=== PATIENT | female | born 1970 | race American Indian/Alaskan Native ===

== ENCOUNTER 2020-02-04 19:43 | Emergency (ER) | payer OTHER ==
[2020-02-04 19:52] VITALS: BP 131/77
== END 2020-02-04 20:31 | disposition left against medical advice (07) ==
LOC: M ED 19:43
DX: F10.220 Alcohol dependence with intoxication, uncomplicated (principal)

== ENCOUNTER → 2021-07-06 | Outpatient (REF) | payer OTHER ==
[2021-07-06 16:57] LABS: BASO # 0.1 10^3/uL (0.0-0.2); BASO % 0.7 % (0.0-1.0); EOS # 0.3 10^3/uL (0.0-0.5); EOS % 2.5 % (0.0-3.0); HEMATOCRIT 43.6 % (36.0-47.0); HEMOGLOBIN 14.4 g/dl (12.0-15.5); LYMPH # 2.4 10^3/uL (1.5-5.0); LYMPH % 21.5 % (24.0-44.0); MEAN CORPUSCULAR HEMOGLOBIN 30.6 pg (27.0-33.0); MEAN CORPUSCULAR VOLUME 92.6 fl (80.0-96.0); MONO # 0.8 10^3/uL (0.0-0.8); MONO % 6.7 % (2.0-8.0); NEUTROPHILS # 7.7 10^3/uL (1.5-8.5); NEUTROPHILS % 68.3 % (36.0-66.0); PLATELET COUNT, AUTOMATED 333 10^3/uL (150-450); RED BLOOD COUNT 4.71 10^6/uL (4.00-5.40); WHITE BLOOD COUNT 11.3 10^3/uL (4.0-10.0)
[2021-07-06 17:07] LABS: ALBUMIN 3.7 GM/DL (3.2-5.2); ALT/SGPT 23 U/L (12-78); BILIRUBIN,TOTAL 0.2 MG/DL (0.2-1.0); BLOOD UREA NITROGEN 16 MG/DL (7-18); CALCIUM LEVEL 9.6 MG/DL (8.5-10.1); CARBON DIOXIDE LEVEL 29 MEQ/L (21-32); CHLORIDE LEVEL 104 MEQ/L (98-107); CHOLESTEROL LEVEL 183 MG/DL (<200); CHOLESTEROL RISK RATIO 3.388 (<5); CREATININE FOR GFR 0.84 MG/DL (0.55-1.30); GLOMERULAR FILTRATION RATE > 60.0 (>51); GLUCOSE, FASTING 94 MG/DL (70-100); HDL CHOLESTEROL 54 MG/DL (>40); LDL CHOLESTEROL 109 MG/DL (<100); NON-HDL-C 129 MG/DL; POTASSIUM SERUM 3.8 MEQ/L (3.5-5.1); SODIUM LEVEL 137 MEQ/L (136-145); TRIGLYCERIDES LEVEL 100 MG/DL (<150)
== END ==
LOC: M SFHCADAM 14:36
PROVIDERS: ATTEND Physician Assistant Medical
DX: I10 Essential (primary) hypertension (principal); F41.1 Generalized anxiety disorder; F10.20 Alcohol dependence, uncomplicated; Z12.39 Encounter for other screening for malignant neoplasm of breast

== ENCOUNTER → 2022-01-01 | Outpatient (REF) | payer OTHER | LOC: M SFHCADAM 12:24 | PROVIDERS: ATTEND Family Medicine | DX: R05.9 Cough, unspecified (principal) ==

== ENCOUNTER 2022-06-14 02:12 | Emergency (ER) | payer OTHER ==
[~2022-06-14] VITALS: Ht 170.2 cm; Wt 98.5 kg
[2022-06-14 02:14] VITALS: BP 132/85
== END 2022-06-14 02:55 | disposition left against medical advice (07) ==
LOC: M ED 02:12
DX: Z53.21 Procedure and treatment not carried out due to patient leaving prior to being seen by health care provider (principal)

== ENCOUNTER → 2022-07-18 | Outpatient (REF) | payer OTHER ==
[~2022-07-18] MED LIST: ASPI-596 PO; HYDR-3363 PO; LEXA1TAB PO; LISI10TA24 PO; TRAZ150T90 PO; [UNRECOGNIZED DRUG - CODE] OU
== END ==
LOC: M SFHCPLAZ 17:21
PROVIDERS: ATTEND Physician Assistant
DX: R05.1 Acute cough (principal)

== ENCOUNTER → 2022-11-01 | Outpatient (CLI) | payer OTHER | LOC: M LABSMTC 10:33 | PROVIDERS: ATTEND Family Medicine | DX: Z20.822 Contact with and (suspected) exposure to COVID-19 (principal) ==

== ENCOUNTER 2022-11-24 21:33 | Inpatient (IN) | payer OTHER ==
[~2022-11-24] VITALS: Ht 170.2 cm; Wt 103.2 kg
[2022-11-24] MEDS ORDERED: DERMABOND TOPICAL SKIN ADHESIVE TOP ONE (21:50)
[2022-11-24] MEDS ORDERED: BOOSTRIX/ADACEL VACCINE (DIPHTH/PERTUSS/ACELL/TETANUS) 0.5ML SYR IM.IMMUN ONE (21:55)
[2022-11-24 22:39] LABS: HEMATOCRIT 39.8 % (36.0-47.0); HEMOGLOBIN 13.3 g/dl (12.0-15.5); MEAN CORPUSCULAR HEMOGLOBIN 31.9 pg (27.0-33.0); MEAN CORPUSCULAR HGB CONC 33.4 g/dl (32.0-36.5); MEAN CORPUSCULAR VOLUME 95.4 fl (80.0-96.0); PLATELET COUNT, AUTOMATED 256 10^3/uL (150-450); RED BLOOD COUNT 4.17 10^6/uL (4.00-5.40); WHITE BLOOD COUNT 6.1 10^3/uL (4.0-10.0)
[2022-11-24 22:57] LABS: AMPHETAMINES LEVEL URINE NEGATIVE (NEGATIVE); BARBITURATES URINE NEGATIVE (NEGATIVE); BENZODIAZEPINES URINE NEGATIVE (NEGATIVE); CANNABINOIDS URINE NEGATIVE (NEGATIVE); COCAINE METABOLITE URINE NEGATIVE (NEGATIVE); METHADONE URINE NEGATIVE (NEGATIVE); OPIATES URINE NEGATIVE (NEGATIVE); PHENCYCLIDINE URINE NEGATIVE (NEGATIVE)
[2022-11-24 23:00] LABS: ACETAMINOPHEN LEVEL < 2.0 UG/ML (10.0-20.0); SALICYLATE LEVEL < 3.0 MG/DL (<30)
[2022-11-24 23:11] LABS: ALBUMIN 3.5 G/DL (3.2-5.2); ALKALINE PHOSPHATASE 74 U/L (46-116); ALT/SGPT 49 U/L (7.0-40); AST/SGOT 87 U/L (<34); BILIRUBIN,DIRECT 0.1 MG/DL (<0.4); BILIRUBIN,TOTAL 0.3 MG/DL (0.3-1.2); BLOOD UREA NITROGEN 8 MG/DL (9-23); CALCIUM LEVEL 8.4 MG/DL (8.5-10.1); CARBON DIOXIDE LEVEL 26 MMOL/L (20-31); CHLORIDE LEVEL 109 MMOL/L (98-107); CREATININE FOR GFR 0.84 MG/DL (0.55-1.30); ETHYL ALCOHOL (ETHANOL) 0.331 % (0.000-0.010); GLOMERULAR FILTRATION RATE > 60.0 (>51); GLUCOSE, FASTING 101 MG/DL (60-100); POTASSIUM SERUM 3.5 MMOL/L (3.5-5.1); SODIUM LEVEL 146 MMOL/L (136-145)
[2022-11-24 23:41] LABS: HCG, SERUM QUALITATIVE NEGATIVE (NEGATIVE)
[2022-11-25 00:18] LABS: TOTAL PROTEIN 6.5 G/DL (5.7-8.2)
[2022-11-25] MEDS: traZODone 50 MG TAB PO SCH ×3 (03:05→21:49)
[2022-11-25] MEDS: ERYTHROMYCIN OPHTH OINT OU SCH ×5 (03:31→22:42)
[2022-11-25] MEDS ORDERED: hydroCHLOROthiazide 12.5 MG CAPSULE PO ONE (06:50)
[2022-11-25] MEDS ORDERED: ONDANSETRON 4MG ORAL DISINTEGRATING TAB PO PRN (07:40)
[2022-11-25] MEDS: FOLIC ACID 1MG TAB PO SCH (08:05)
[2022-11-25] MEDS: LORazepam 2 MG TAB PO PRN ×2 (08:05→17:11)
[2022-11-25] MEDS: MULTIVITAMINS/MINERALS THERAP 1 TAB PO SCH (08:06)
[2022-11-25] MEDS: THIAMINE 100 MG TAB PO SCH ×2 (08:07→21:16)
[2022-11-25] MEDS ORDERED: ASPI-596 PO (08:53)
[2022-11-25] MEDS ORDERED: OLAN1TAB16 PO (08:53)
[2022-11-25] MEDS ORDERED: LEXA1TAB2 PO (08:53)
[2022-11-25] MEDS ORDERED: hydroCHLOROthiazide 12.5 MG CAPSULE PO SCH (09:00)
[2022-11-25] MEDS ORDERED: ALBU8.5H INH (09:00)
[2022-11-25] MEDS ORDERED: HOME MED LIST COMPLETE! XX SCH (09:05)
[2022-11-25] MEDS: ESCITALOPRAM OXALATE 10 MG TAB (LEXAPRO) PO SCH (11:08)
[2022-11-25] MEDS: OLANZapine 5 MG TAB PO SCH ×2 (11:08→21:16)
[2022-11-26] MEDS: LORazepam 2 MG TAB PO PRN (08:26)
[2022-11-26] MEDS: ERYTHROMYCIN OPHTH OINT OU SCH ×4 (09:00→20:23)
[2022-11-26] MEDS ORDERED: hydroCHLOROthiazide 12.5 MG CAPSULE PO SCH (09:00)
[2022-11-26] MEDS: NICOTINE 21MG/24HR 1 EA TRANSDERMAL TD SCH (09:00)
[2022-11-26] MEDS: FOLIC ACID 1MG TAB PO SCH (10:45)
[2022-11-26] MEDS: ESCITALOPRAM OXALATE 10 MG TAB (LEXAPRO) PO SCH (10:46)
[2022-11-26] MEDS: THIAMINE 100 MG TAB PO SCH ×2 (10:47→20:23)
[2022-11-26] MEDS: MULTIVITAMINS/MINERALS THERAP 1 TAB PO SCH (10:47)
[2022-11-26] MEDS: OLANZapine 5 MG TAB PO SCH ×2 (10:48→20:23)
[2022-11-26] MEDS ORDERED: MOM 30ML SUSPENSION UDC PO PRN (12:45)
[2022-11-26] MEDS ORDERED: diphenhydrAMINE 25MG CAP PO PRN (12:45)
[2022-11-26] MEDS ORDERED: ALBUTEROL 90 MCG/ACT 8GM HFA INHALER INH PRN (12:45)
[2022-11-26] MEDS ORDERED: LORazepam 2 MG TAB PO PRN (12:45)
[2022-11-26] MEDS ORDERED: MAALOX 30 ML SUSP *UDC PO PRN (12:45)
[2022-11-26 12:56] LABS: RSV AMPLIFICATION NEGATIVE (NEGATIVE)
[2022-11-26 16:01] VITALS: BP 145/75
[2022-11-26] MEDS ORDERED: traZODone 50 MG TAB PO PRN (17:40)
[2022-11-26] MEDS: traZODone 50 MG TAB PO SCH (20:23)
[2022-11-26 22:16] VITALS: BP 135/85
[2022-11-27 06:18] VITALS: BP 144/68
[2022-11-27] MEDS: hydroCHLOROthiazide 12.5 MG CAPSULE PO SCH (08:06)
[2022-11-27] MEDS: NICOTINE 21MG/24HR 1 EA TRANSDERMAL TD SCH (08:06)
[2022-11-27] MEDS: OLANZapine 5 MG TAB PO SCH ×2 (08:07→20:15)
[2022-11-27] MEDS: ESCITALOPRAM OXALATE 10 MG TAB (LEXAPRO) PO SCH (08:07)
[2022-11-27] MEDS: THIAMINE 100 MG TAB PO SCH ×2 (08:07→20:15)
[2022-11-27] MEDS: FOLIC ACID 1MG TAB PO SCH (08:07)
[2022-11-27] MEDS: MULTIVITAMINS/MINERALS THERAP 1 TAB PO SCH (08:07)
[2022-11-27] MEDS: ERYTHROMYCIN OPHTH OINT OU SCH ×4 (08:08→20:16)
[2022-11-27] MEDS: EXCEDRIN MIGRAINE TABLET PO PRN ×3 (09:09→22:49)
[2022-11-27 10:09] LABS: HEPATITIS B SURFACE ANTIGEN NEGATIVE (NEGATIVE)
[2022-11-27 10:29] LABS: HEPATITIS B CORE ANTIBODY IGM NEGATIVE (NEGATIVE)
[2022-11-27 18:20] VITALS: BP 138/86
[2022-11-27 19:59] LABS: BLOOD UREA NITROGEN 13 MG/DL (9-23); CALCIUM LEVEL 9.3 MG/DL (8.5-10.1); CARBON DIOXIDE LEVEL 29 MMOL/L (20-31); CHLORIDE LEVEL 100 MMOL/L (98-107); GLOMERULAR FILTRATION RATE > 60.0 (>51); GLUCOSE, FASTING 116 MG/DL (60-100); POTASSIUM SERUM 3.8 MMOL/L (3.5-5.1); SODIUM LEVEL 138 MMOL/L (136-145)
[2022-11-27] MEDS: traZODone 50 MG TAB PO SCH (20:15)
[2022-11-27 22:40] VITALS: BP 150/94
[2022-11-28 06:23] VITALS: BP 157/85
[2022-11-28 06:24] VITALS: BP 157/85
[2022-11-28 07:29] LABS: CHOLESTEROL RISK RATIO 2.33 (<5); HDL CHOLESTEROL 87.1 MG/DL (>40); LDL CHOLESTEROL 99.9 MG/DL (<100)
[2022-11-28] MEDS: OLANZapine 5 MG TAB PO SCH ×2 (09:13→20:20)
[2022-11-28] MEDS: ESCITALOPRAM OXALATE 10 MG TAB (LEXAPRO) PO SCH (09:15)
[2022-11-28] MEDS: hydroCHLOROthiazide 12.5 MG CAPSULE PO SCH (09:15)
[2022-11-28] MEDS: FOLIC ACID 1MG TAB PO SCH (09:15)
[2022-11-28] MEDS: MULTIVITAMINS/MINERALS THERAP 1 TAB PO SCH (09:15)
[2022-11-28] MEDS: NICOTINE 21MG/24HR 1 EA TRANSDERMAL TD SCH (09:21)
[2022-11-28] MEDS: EXCEDRIN MIGRAINE TABLET PO PRN ×2 (09:49→14:22)
[2022-11-28 17:29] VITALS: BP 164/88
[2022-11-28] MEDS: traZODone 50 MG TAB PO SCH (20:20)
[2022-11-29 06:41] VITALS: BP 138/75
[2022-11-29] MEDS: ESCITALOPRAM OXALATE 10 MG TAB (LEXAPRO) PO SCH (08:09)
[2022-11-29] MEDS: hydroCHLOROthiazide 12.5 MG CAPSULE PO SCH (08:09)
[2022-11-29] MEDS: FOLIC ACID 1MG TAB PO SCH (08:09)
[2022-11-29] MEDS: MULTIVITAMINS/MINERALS THERAP 1 TAB PO SCH (08:09)
[2022-11-29] MEDS: OLANZapine 5 MG TAB PO SCH (08:09)
[2022-11-29 08:10] VITALS: BP 137/82
[2022-11-29] MEDS: NICOTINE 21MG/24HR 1 EA TRANSDERMAL TD SCH (08:10)
[2022-11-29] MEDS ORDERED: TRAZ150T90 PO (08:40)
[2022-11-29] MEDS ORDERED: OLAN1TAB16 PO (08:40)
[2022-11-29] MEDS ORDERED: LEXA1TAB2 PO (08:40)
== END 2022-11-29 12:14 | disposition home or self-care (01) | DRG 754 ==
LOC: M ED 21:33 → M ED INP 11-26 12:45 → M PSY 11-26 15:55
PROVIDERS: ADMIT Student in an Organized Health Care Education/Training Program; ATTEND Psychiatry & Neurology Psychiatry
DX: F32.A Depression, unspecified (principal); I10 Essential (primary) hypertension; F10.129 Alcohol abuse with intoxication, unspecified; F17.210 Nicotine dependence, cigarettes, uncomplicated; Z79.899 Other long term (current) drug therapy; Z91.51 Personal history of suicidal behavior; Z63.0 Problems in relationship with spouse or partner; Z86.16 Personal history of COVID-19; R74.01 Elevation of levels of liver transaminase levels

== ENCOUNTER 2023-05-28 13:46 | Emergency (ER) | payer OTHER ==
[~2023-05-28] VITALS: Ht 170.2 cm; Wt 100.0 kg
[~2023-05-28 13:46] MED LIST changes: +ALBU8.5H INH; +LEXA1TAB2 PO; +OLAN1TAB16 PO
[2023-05-28 15:10] LABS: BASO # 0.1 10^3/uL (0.0-0.2); BASO % 0.8 % (0.0-1.0); EOS # 0.1 10^3/uL (0.0-0.5); EOS % 1.4 % (0.0-3.0); HEMOGLOBIN 14.8 g/dl (12.0-15.5); LYMPH # 1.2 10^3/uL (1.5-5.0); LYMPH % 19.5 % (24.0-44.0); MEAN CORPUSCULAR HGB CONC 34.4 g/dl (32.0-36.5); MONO # 1.1 10^3/uL (0.0-0.8); NEUTROPHILS # 3.5 10^3/uL (1.5-8.5); NEUTROPHILS % 59.8 % (36.0-66.0); PLATELET COUNT, AUTOMATED 269 10^3/uL (150-450); RED BLOOD COUNT 4.48 10^6/uL (4.00-5.40); WHITE BLOOD COUNT 5.9 10^3/uL (4.0-10.0)
[2023-05-28] MEDS ORDERED: PROMETHAZINE 25MG/ML 1ML VIAL IV ONE (15:30)
[2023-05-28] MEDS ORDERED: NS 1,000 ML IV ONE ×2 (15:30→21:30)
[2023-05-28] MEDS ORDERED: POTASSIUM CHLORIDE 10MEQ SR TABLET PO ONE ×2 (15:35→21:20)
[2023-05-28] MEDS ORDERED: KCL 10MEQ/100ML SWI (KRUN) 10 MEQ in IV 1 EA IV ONE ×2 (15:35→21:30)
[2023-05-28 15:50] LABS: LIPASE 57 U/L (12-53)
[2023-05-28 15:52] LABS: ALBUMIN 3.9 G/DL (3.2-5.2); ALKALINE PHOSPHATASE 65 U/L (46-116); ALT/SGPT 183 U/L (7.0-40); AST/SGOT 121 U/L (<34); BILIRUBIN,DIRECT 0.3 MG/DL (<0.4); BILIRUBIN,TOTAL 0.6 MG/DL (0.3-1.2); MAGNESIUM LEVEL 1.8 MG/DL (1.8-2.4)
[2023-05-28] MEDS ORDERED: ISOVUE-370 76% 100ML VIAL As Ordered ONE (16:10)
[2023-05-28 16:23] LABS: CK-MB VALUE MASS < 1.0 NG/ML (<3.6)
[2023-05-28 16:24] LABS: CPK CREATINE PHOSPHOKINASE 115 U/L (34-145); MB/CK RELATIVE INDEX 0.86 (< OR =4)
[2023-05-28 16:39] LABS: RSV AMPLIFICATION NEGATIVE (NEGATIVE)
[2023-05-28 17:27] LABS: HEMOGLOBIN A1c 4.9 % (4.0-6.0)
[2023-05-29] MEDS ORDERED: POTA10CA60 PO (00:36)
[2023-05-29 00:46] VITALS: BP 131/78; TEMP 98; O2SAT 98
== END 2023-05-29 00:50 | disposition home or self-care (01) ==
LOC: M ED 13:46
DX: R53.1 Weakness (principal); E87.6 Hypokalemia; R10.9 Unspecified abdominal pain; I10 Essential (primary) hypertension; J45.909 Unspecified asthma, uncomplicated; G43.909 Migraine, unspecified, not intractable, without status migrainosus; F17.200 Nicotine dependence, unspecified, uncomplicated; Z79.899 Other long term (current) drug therapy; Z79.51 Long term (current) use of inhaled steroids
CPT/HCPCS: 70450; 70544; 70551; 74177; 80047; 80076; 81001; 82550; 82553; 83036; 83690; 83735; 84132; 85025; 87086; 87631; 93005; 93041; 94760; 96365; 96366; 96375; 99285; J2550; Q9967

== ENCOUNTER → 2023-06-05 | Outpatient (CLI) | payer OTHER ==
[~2023-06-05] MED LIST changes: +POTA10CA60 PO
== END ==
LOC: M ADAMS 09:28
PROVIDERS: ATTEND Physician Assistant Medical
DX: M54.50 Low back pain, unspecified (principal); M54.2 Cervicalgia

== ENCOUNTER → 2023-06-05 | Outpatient (REF) | payer OTHER ==
[2023-06-05 16:10] LABS: BLOOD UREA NITROGEN 11 MG/DL (9-23); CALCIUM LEVEL 9.7 MG/DL (8.5-10.1); CARBON DIOXIDE LEVEL 29 MMOL/L (20-31); CHLORIDE LEVEL 105 MMOL/L (98-107); CREATININE FOR GFR 0.96 MG/DL (0.55-1.30); GLOMERULAR FILTRATION RATE > 60.0 (>51); GLUCOSE, FASTING 95 MG/DL (60-100); POTASSIUM SERUM 4.4 MMOL/L (3.5-5.1); SODIUM LEVEL 141 MMOL/L (136-145)
== END ==
LOC: M SFHCADAM 09:04
PROVIDERS: ATTEND Physician Assistant Medical
DX: E87.6 Hypokalemia (principal); R19.5 Other fecal abnormalities

== ENCOUNTER → 2023-06-06 | Outpatient (REF) | payer OTHER | LOC: M SFHCADAM 16:25 | PROVIDERS: ATTEND Physician Assistant Medical | DX: R19.5 Other fecal abnormalities (principal) ==

== ENCOUNTER → 2024-02-19 | Outpatient (CLI) | payer OTHER ==
[~2024-02-19] MED LIST changes: -POTA10CA60 PO; +POTA10CA70 PO
== END ==
LOC: M ADAMS 14:30
PROVIDERS: ATTEND Physician Assistant Medical
DX: M25.551 Pain in right hip (principal)

== ENCOUNTER 2024-07-12 12:39 | Emergency (ER) | payer OTHER ==
[~2024-07-12] VITALS: Ht 170.2 cm; Wt 84.5 kg
[2024-07-12 13:53] LABS: BASO # 0.1 10^3/uL (0.0-0.2); BASO % 0.6 % (0.0-1.0); EOS # 0.2 10^3/uL (0.0-0.5); EOS % 2.1 % (0.0-3.0); HEMATOCRIT 43.4 % (36.0-47.0); HEMOGLOBIN 14.7 g/dl (12.0-15.5); LYMPH # 1.7 10^3/uL (1.5-5.0); LYMPH % 17.4 % (24.0-44.0); MEAN CORPUSCULAR HEMOGLOBIN 32.8 pg (27.0-33.0); MEAN CORPUSCULAR HGB CONC 33.9 g/dl (32.0-36.5); MEAN CORPUSCULAR VOLUME 96.9 fl (80.0-96.0); MONO # 0.9 10^3/uL (0.0-0.8); NEUTROPHILS # 6.9 10^3/uL (1.5-8.5); NEUTROPHILS % 70.4 % (36.0-66.0); PLATELET COUNT, AUTOMATED 281 10^3/uL (150-450); RED BLOOD COUNT 4.48 10^6/uL (4.00-5.40); WHITE BLOOD COUNT 9.8 10^3/uL (4.0-10.0)
[2024-07-12 14:04] LABS: INR 1.05; PROTHROMBIN TIME 13.4 SECONDS (12.5-14.5)
[2024-07-12 14:18] LABS: BLOOD UREA NITROGEN 12 MG/DL (9-23); CALCIUM LEVEL 9.9 MG/DL (8.5-10.1); CARBON DIOXIDE LEVEL 29 MMOL/L (20-31); CHLORIDE LEVEL 105 MMOL/L (98-107); CK-MB VALUE MASS < 1.0 NG/ML (<3.6); CREATININE FOR GFR 0.93 MG/DL (0.55-1.30); GLOMERULAR FILTRATION RATE > 60.0 (>51); GLUCOSE, FASTING 91 MG/DL (60-100); MAGNESIUM LEVEL 2.2 MG/DL (1.8-2.4); POTASSIUM SERUM 3.4 MMOL/L (3.5-5.1); SODIUM LEVEL 138 MMOL/L (136-145)
[2024-07-12 14:20] LABS: FREE T4 1.19 NG/DL (0.89-1.76); THYROID STIMULATING HORMONE 0.945 uIU/ML (0.55-4.78)
[2024-07-12 14:21] LABS: CPK CREATINE PHOSPHOKINASE 56 U/L (34-145); MB/CK RELATIVE INDEX 1.78 (< OR =4)
[2024-07-12] MEDS: ACETAMINOPHEN 325 MG TAB PO ONE (16:10)
[2024-07-12] MEDS: POTASSIUM CHLORIDE 10MEQ SR TABLET PO ONE (16:10)
[2024-07-12 18:05] VITALS: O2SAT 97
[2024-07-12 19:00] VITALS: BP 137/76; TEMP 98.7; O2SAT 98
== END 2024-07-12 19:00 | disposition home or self-care (01) ==
LOC: M ED 14:39
DX: R55 Syncope and collapse (principal); B34.8 Other viral infections of unspecified site; S00.83XA Contusion of other part of head, initial encounter; S40.021A Contusion of right upper arm, initial encounter; W01.198A Fall on same level from slipping, tripping and stumbling with subsequent striking against other object, initial encounter; I45.81 Long QT syndrome; I10 Essential (primary) hypertension; F17.200 Nicotine dependence, unspecified, uncomplicated; F10.10 Alcohol abuse, uncomplicated; Y92.009 Unspecified place in unspecified non-institutional (private) residence as the place of occurrence of the external cause; Y93.89 Activity, other specified; Y99.9 Unspecified external cause status; Z79.52 Long term (current) use of systemic steroids; Z79.811 Long term (current) use of aromatase inhibitors; Z79.899 Other long term (current) drug therapy

== ENCOUNTER → 2024-11-11 | Outpatient (REF) | payer OTHER | LOC: M SFHCDERM 12:53 | PROVIDERS: ATTEND Physician Assistant | DX: D22.9 Melanocytic nevi, unspecified (principal) ==

== ENCOUNTER 2025-01-08 11:23 | Emergency (ER) | payer OTHER ==
[~2025-01-08] VITALS: Ht 170.2 cm; Wt 82.0 kg
[2025-01-08] MEDS: methocarbamoL 500 MG TAB PO ONE (15:07)
[2025-01-08] MEDS: predniSONE 20 MG TAB PO ONE (15:07)
[2025-01-08] MEDS: KETOROLAC 30 MG/ML 1ML VIAL IM ONE (15:08)
[2025-01-08 15:25] VITALS: BP 138/82; TEMP 98.7; O2SAT 99
[2025-01-08] MEDS ORDERED: METH-1164 PO (15:42)
[2025-01-08] MEDS ORDERED: MEDR4PAK PO (15:42)
[2025-01-08] MEDS ORDERED: HYDR-3363 PO (15:42)
== END 2025-01-08 15:51 | disposition home or self-care (01) ==
LOC: M ED 11:23
DX: R20.2 Paresthesia of skin (principal); M54.32 Sciatica, left side; I10 Essential (primary) hypertension; F17.210 Nicotine dependence, cigarettes, uncomplicated; Z79.1 Long term (current) use of non-steroidal anti-inflammatories (NSAID); Z79.51 Long term (current) use of inhaled steroids; Z79.899 Other long term (current) drug therapy
CPT/HCPCS: 96372; 99283; J1885; J7512

== ENCOUNTER 2025-04-11 03:04 | Emergency (ER) | payer OTHER ==
[~2025-04-11] VITALS: Ht 170.2 cm; Wt 81.4 kg
[~2025-04-11 03:04] MED LIST changes: +MEDR4PAK PO; +METH-1164 PO
[2025-04-11 04:14] LABS: PLATELET COUNT, AUTOMATED 207 10^3/uL (150-450)
[2025-04-11 04:21] LABS: AMPHETAMINES LEVEL URINE NEGATIVE (NEGATIVE); BARBITURATES URINE NEGATIVE (NEGATIVE); BENZODIAZEPINES URINE NEGATIVE (NEGATIVE); CANNABINOIDS URINE NEGATIVE (NEGATIVE); COCAINE METABOLITE URINE NEGATIVE (NEGATIVE); METHADONE URINE NEGATIVE (NEGATIVE); OPIATES URINE NEGATIVE (NEGATIVE); PHENCYCLIDINE URINE NEGATIVE (NEGATIVE)
[2025-04-11 04:25] LABS: ALT/SGPT 25 U/L (7.0-40); AST/SGOT 35 U/L (<34); CALCIUM LEVEL 8.5 MG/DL (8.5-10.1); CARBON DIOXIDE LEVEL 28 MMOL/L (20-31); CHLORIDE LEVEL 108 MMOL/L (98-107); CREATININE FOR GFR 0.72 MG/DL (0.55-1.30); GLOMERULAR FILTRATION RATE > 90.0 (>51); POTASSIUM SERUM 3.5 MMOL/L (3.5-5.1); SALICYLATE LEVEL < 3.0 MG/DL (<30); SODIUM LEVEL 147 MMOL/L (136-145)
[2025-04-11 04:54] LABS: ETHYL ALCOHOL (ETHANOL) 0.349 % (0.000-0.010)
[2025-04-11] MEDS: FOLIC ACID 1 MG TAB PO SCH (08:06)
[2025-04-11] MEDS: MULTIVITAMINS/MINERALS THERAP 1 TAB PO SCH (08:06)
[2025-04-11] MEDS: THIAMINE 100 MG TAB PO SCH (08:06)
[2025-04-11] MEDS ORDERED: VALS80TA PO (08:15)
[2025-04-11] MEDS: LORazepam 1 MG TAB PO ONE (08:59)
[2025-04-11 15:38] VITALS: BP 146/86; TEMP 98.2; O2SAT 99
== END 2025-04-11 16:17 | disposition home or self-care (01) ==
LOC: M ED 03:04
DX: F10.120 Alcohol abuse with intoxication, uncomplicated (principal); Z79.1 Long term (current) use of non-steroidal anti-inflammatories (NSAID); Z79.51 Long term (current) use of inhaled steroids; Z79.899 Other long term (current) drug therapy

== ENCOUNTER → 2025-09-01 | Outpatient (REF) | payer OTHER ==
[~2025-09-01] MED LIST changes: +VALS80TA PO; +[UNRECOGNIZED DRUG - CODE] OU; -[UNRECOGNIZED DRUG - CODE] OU
== END ==
LOC: M LAB REF 13:21
PROVIDERS: ATTEND Physician Assistant
DX: D22.39 Melanocytic nevi of other parts of face (principal)